=== PATIENT | female | born 1975 | race Hispanic/Latino ===

== ENCOUNTER 2017-03-08 09:20 | Outpatient (CLI) | payer OTHER ==
--- NOTE | 2017-03-08 11:28 | Ultrasound Report ---
LEFT DIGITAL DIAGNOSTIC MAMMOGRAM with CAD and LEFT BREAST ULTRASOUND: 03/08/17 09:20:00 CLINICAL: Followup of probably benign asymmetry at 2 o'clock in followup of complicated cyst 3 o'clock and 1 o'clock. COMPARISON:[facility] [place] 09/10/16 FINDINGS: Routine implant displaced views plus rolled CC implant displaced views were performed. The parenchymal pattern is stable. No mass, architectural distortion or suspicious calcifications. Ultrasound of the left breast (including all four quadrants and the retroareolar area) was performed and demonstrated a benign anechoic cyst at 1 o'clock 7 cm from the nipple measuring 9 x 7 x 3 mm. It correlates with the previously described complicated cyst. A benign anechoic cyst at 3 o'clock 4 cm from the nipple measures 5 x 4 x 4 mm and correlates with what was described as a complicated cyst on the last exam. No solid mass or shadowing. IMPRESSION: No mammographic evidence of malignancy. Benign cysts at 1 o'clock and 3 o'clock. BI-RADS CATEGORY: 2 - - Benign RECOMMENDATION: Routine mammographic screening. ACR BI-RADS MAMMOGRAPHIC CODES: 0 = Needs additional imaging evaluation; 1 = Negative; 2 = Benign; 3 = Probably benign; 4 = Suspicious; 5 = Malignant; 6 = Known biopsy-proven malignancy COMMENT: 1. Dense breast tissue, i.e., adenosis, fibrocystic changes, etc., may obscure an underlying neoplasm. 2. Approximately 10% of cancers are not detected with mammography. 3. A negative mammography report should not delay biopsy if a clinically suspicious mass is present. COMMENT: Patient follow-up letters are generated via our [employer] application.
== END 2017-03-08 09:21 | disposition home or self-care (01) ==
LOC: SPVWC 09:20
PROVIDERS: ATTEND Surgery
DX: N60.02 Solitary cyst of left breast (principal); Z98.82 Breast implant status
CPT/HCPCS: 76641; G0206

== ENCOUNTER 2017-08-23 10:40 | Outpatient (CLI) | payer OTHER ==
--- NOTE | 2017-08-23 12:05 | Mammography Report ---
BILATERAL DIGITAL AUGMENTED SCREENING MAMMOGRAM with CAD: 08/23/17 10:40:00 CLINICAL: Routine screening. Cysts of the upper outer left breast. COMPARISON:03/08/17 left mammogram and left breast ultrasound. FINDINGS: Screening views with and without implant displacement demonstrate mostly fatty breasts with a few bilateral residual fibroglandular densities. Previously confirmed cysts of the upper outer left breast are less prominent than on the prior exam. No mass, architectural distortion or suspicious calcifications. Intact subpectoral implants. IMPRESSION: No mammographic evidence of malignancy. BI-RADS CATEGORY: 2 -- Benign RECOMMENDATION: Routine mammographic screening in one year. ACR BI-RADS MAMMOGRAPHIC CODES: 0 = Needs additional imaging evaluation; 1 = Negative; 2 = Benign; 3 = Probably benign; 4 = Suspicious; 5 = Malignant; 6 = Known biopsy-proven malignancy COMMENT: 1. Dense breast tissue, i.e., adenosis, fibrocystic changes, etc., may obscure an underlying neoplasm. 2. Approximately 10% of cancers are not detected with mammography. 3. A negative mammography report should not delay biopsy if a clinically suspicious mass is present. COMMENT: Patient follow-up letters are generated via our [employer] application.
== END 2017-08-23 10:41 | disposition home or self-care (01) ==
LOC: SPVWC 10:40
PROVIDERS: ATTEND Surgery
DX: Z12.31 Encounter for screening mammogram for malignant neoplasm of breast (principal)
CPT/HCPCS: 77067

== ENCOUNTER 2018-09-21 14:16 | Outpatient (CLI) | payer OTHER ==
--- NOTE | 2018-09-21 15:44 | Ultrasound Report ---
Right breast ultrasound: Examination performed for persistent right asymmetry. Imaging of the medial and lateral portions of the breast fail to identify any significant asymmetry anterior to the implant or pectoralis muscle other than a normal-appearing lymph node in the low axilla measuring 16 mm. Impression: The lymph node is felt to have a relatively low likelihood of being the finding that is imaged on mammography even though it is similar in size. No other significant finding to correlate with mammogram. The findings are not overtly suspicious and based on its location may not have been visualized although present on prior mammogram. Recommendation: Short-term followup versus MRI is recommended and the findings and recommendation were discussed with the patient. BI-RADS CATEGORY: 0 = Needs additional imaging evaluation ACR BI-RADS MAMMOGRAPHIC CODES: 0 = Needs additional imaging evaluation; 1 = Negative; 2 = Benign; 3 = Probably benign; 4 = Suspicious; 5 = Malignant; 6 = Known biopsy-proven malignancy COMMENT: 1. Dense breast tissue, i.e., adenosis, fibrocystic changes, etc., may obscure an underlying neoplasm. 2. Approximately 10% of cancers are not detected with mammography. 3. A negative mammography report should not delay biopsy if a clinically suspicious mass is present.
== END 2018-09-21 14:17 | disposition home or self-care (01) ==
LOC: SPVWC 14:16
PROVIDERS: ATTEND Surgery
DX: R92.8 Other abnormal and inconclusive findings on diagnostic imaging of breast (principal)

== ENCOUNTER 2018-10-10 12:00 | Outpatient (CLI) | payer OTHER ==
--- NOTE | 2018-10-10 15:56 | Magnetic Resonance Report ---
BILATERAL BREAST MRI WITHOUT AND WITH CONTRAST: 10/10/18 CLINICAL: A right asymmetry on recent mammograms. COMPARISON: 09/04/18 and 09/15/18 mammograms TECHNIQUE: Axial 1.0-mm T1 without, axial high resolution 2.0-mm T2,axial STIR and axial STIR with silicon excitation water saturation, sagittal T2 and axial 1.0-mm dynamic Vibrant high-resolution postcontrast T1 fat saturation sequences on a 1.5 Benita magnet. The examination was performed with an 8 channel dedicated [place] breast coil. Post processing with CAD and subtraction was performed on an [employer] workstation. 16.0 cc of Multihance was injected without incident for the contrast portion of the exam. Consent was obtained prior to the administration of the contrast. FINDINGS: Right: Minimal background parenchymal enhancement. No mass or suspicious enhancement of the right breast. Normal breast parenchyma correlates with the asymmetry on recent mammograms. An intact subpectoral implant with signal consistent with a silicone implant. No suspicious right axillary or right internal mammary lymph nodes. Left: Minimal background parenchymal enhancement. No mass or suspicious enhancement of the left breast. An intact subpectoral implant with signal consistent with a silicone implant. No suspicious left axillary or left internal mammary lymph nodes. IMPRESSION: Negative study with no suspicious finding. BIRADS 2 - - Benign
== END 2018-10-10 12:01 | disposition home or self-care (01) ==
LOC: SPVIMAG 12:00
PROVIDERS: ATTEND Surgery
DX: R92.2 Inconclusive mammogram (principal)
CPT/HCPCS: A9577; C8908; 77049